=== PATIENT | male | born 1975 | race American Indian/Alaskan Native ===

== ENCOUNTER 2017-10-18 10:42 | Emergency (ER) | payer OTHER ==
[~2017-10-18] VITALS: Ht 177.8 cm; Wt 95.2 kg
[2017-10-18] MEDS ORDERED: Percocet 5-3251 EACH PO (11:32)
[2017-10-18] MEDS ORDERED: Robaxin500 MG PO (11:32)
== END 2017-10-18 11:54 | disposition home or self-care (01) ==
LOC: ER 10:42
DX: S42.031A Displaced fracture of lateral end of right clavicle, initial encounter for closed fracture (principal); S42.191A Fracture of other part of scapula, right shoulder, initial encounter for closed fracture; S09.90XA Unspecified injury of head, initial encounter; S40.212A Abrasion of left shoulder, initial encounter; S50.811A Abrasion of right forearm, initial encounter; F17.210 Nicotine dependence, cigarettes, uncomplicated; V00.131A Fall from skateboard, initial encounter
CPT/HCPCS: 73000; 96372; 99283; J1885